=== PATIENT | male | born 1955 | race Two or more races ===

== ENCOUNTER 2017-03-25 16:59 | Emergency (ER) | payer MEDICARE ==
--- NOTE | 2017-03-25 17:42 | ER Document Report ---
ED Medical Screen (RME) - General Chief Complaint: Swelling of Lower Extremity Stated Complaint: SHORTNESS OF BREATH Time Seen by Provider: 03/25/17 17:34 Notes: 61-year-old male patient past history of hyperlipidemia, hypertension, diabetes mellitus on insulin, and depression. He is a bronchitis for about a month, he was recently treated with a steroid taper dose pack which ended yesterday. He reports about one half weeks of worsening symptoms with worsening swelling in his legs and shortness of breath. He also admits to probably too much ham over [place]. He has had chronic edema to the lower extremities for a long time, and his new primary care provider recommended Lasix 6 weeks ago. He reports it was helping quite a lot until the past one half weeks, when he probably had too much a.m. and he was put on the steroid dose pack for his bronchitis. He gets short of breath when he lays back. I have greeted and performed a rapid initial assessment of this patient. A comprehensive ED assessment and evaluation of the patient, analysis of test results and completion of the medical decision making process will be conducted by additional ED providers. TRAVEL OUTSIDE OF THE [place] IN LAST 30 DAYS: No - Related Data Allergies/Adverse Reactions: Penicillins Allergy (Verified 03/25/17 17:03) Past Medical History - Past Medical History Cardiac Medical History: Reports: Hx Hypercholesterolemia, Hx Hypertension Pulmonary Medical History: Denies: Hx Tuberculosis Neurological Medical History: Denies: Hx Seizures Endocrine Medical History: Reports: Hx Diabetes Mellitus Type 2. Denies: Hx Graves' Disease, Hx Hyperthyroidism, Hx Hypothyroidism GI Medical History: Reports: Hx Gastroesophageal Reflux Disease. Denies: Hx Crohn's Disease, Hx Hiatal Hernia, Hx Irritable Bowel, Hx Liver Failure, Hx Pancreatitis, Hx Ulcer Musculoskeltal Medical History: Denies Hx Arthritis, Denies Hx Fibromyalgia, Denies Hx Muscular Dystrophy Psychiatric Medical History: Reports: Hx Depression Traumatic Medical History: Denies: Hx Fractures Past Surgical History: Reports: Hx Orthopedic Surgery - left shoulder, s/p accident. Denies: Hx Colostomy, Hx Pacemaker - Immunizations Hx Diphtheria, Pertussis, Tetanus Vaccination: Yes Physical Exam - Vital signs Vitals: Temp Pulse Resp BP Pulse Ox 97.8 F 95 16 147/100 H 93 03/25/17 17:34 03/25/17 17:34 03/25/17 17:34 03/25/17 17:34 03/25/17 17:34 Course - Vital Signs Vital signs: Temp Pulse Resp BP Pulse Ox 97.8 F 95 16 147/100 H 93 03/25/17 17:34 03/25/17 17:34 03/25/17 17:34 03/25/17 17:34 03/25/17 17:34
[2017-03-25 18:37] LABS: HEMATOCRIT 50.8 % (37.9-51.0); HEMOGLOBIN 16.4 g/dL (13.5-17.0); MEAN CORPUSCULAR HEMOGLOBIN 27.4 pg (27.0-33.4); MEAN CORPUSCULAR HGB CONC 32.2 g/dL (32.0-36.0); MEAN CORPUSCULAR VOLUME 85 fl (80-97); PLATELET COUNT 259 10^3/uL (150-450); RED BLOOD COUNT 5.97 10^6/uL (4.35-5.55); RED CELL DISTRIBUTION WIDTH 16.2 % (11.5-14.0); WHITE BLOOD COUNT 10.8 10^3/uL (4.0-10.5)
[2017-03-25 18:53] LABS: ALANINE AMINOTRANSFERASE 37 U/L (21-72); ALKALINE PHOSPHATASE 119 U/L (38-126); ANION GAP 11 (5-19); ASPARTATE AMINO TRANSFERASE 28 U/L (17-59); BILIRUBIN,DIRECT 0.6 mg/dL (0.0-0.4); BILIRUBIN,TOTAL 0.9 mg/dL (0.2-1.3); BLOOD UREA NITROGEN 35 mg/dL (7-20); CARBON DIOXIDE 30 mmol/L (22-30); CHLORIDE 101 mmol/L (98-107); CREATINE KINASE 138 U/L (55-170); GLUCOSE 170 mg/dL (75-110); MAGNESIUM 1.6 mg/dL (1.6-2.3); POTASSIUM 4.4 mmol/L (3.6-5.0); SODIUM 141.8 mmol/L (137-145); TOTAL PROTEIN 7.3 g/dL (6.3-8.2)
[2017-03-25 19:00] LABS: ABSOLUTE LYMPHOCYTES# (MANUAL) 2.6 10^3/uL (0.5-4.7); ABSOLUTE MONOCYTES # (MANUAL) 0.6 10^3/uL (0.1-1.4); ABSOLUTE NEUTROPHILS# (MANUAL) 7.2 10^3/uL (1.7-8.2); BASOPHILS % (MANUAL) 1 % (0-2); EOSINOPHILS % (MANUAL) 2 % (0-6); LYMPHOCYTES % (MANUAL) 24 % (13-45); MONOCYTES % (MANUAL) 6 % (3-13); SEGMENTED NEUTROPHILS % (MAN) 67 % (42-78); TOTAL CELLS COUNTED 100
[2017-03-25 19:03] LABS: ANISOCYTOSIS SLIGHT; OVALOCYTES SLIGHT; PLATELET COMMENT ADEQUATE; PLATELET LARGE PRESENT; SCHISTOCYTES 1+; TEAR DROP CELLS 1+; TOXIC GRANULATION 1+
--- NOTE | 2017-03-25 19:06 | ER Document Report ---
ED General - General Chief Complaint: Swelling of Lower Extremity Stated Complaint: SHORTNESS OF BREATH Time Seen by Provider: 03/25/17 17:34 Notes: Patient is a 61-year-old male with a past medical history of morbid obesity, hypertension, hyperlipidemia, hypercholesterolemia, who presents with 1 month of orthopnea that is worsened over the last 2 weeks. Patient reports that he has a long-standing history of sleep apnea but has not had a formal sleep study so he cannot obtain a CPAP. He states that he feels fine until he goes to lay down in bed when his symptoms suddenly develop after he lies flat for approximately 10-15 minutes. He has tried nebulizer treatments without improvement of his symptoms. He has seen his primary care doctor regarding these concerns and was recently started on furosemide with some improvement of his lower extremity edema as well as orthopnea. However, he admits over the holidays he had severe dietary indiscretions consuming much more salt than is recommended. He reports that since that time he has noted worsening of his lower extremity edema as well as orthopnea. He denies any chest pain or shortness of breath. TRAVEL OUTSIDE OF THE [place] IN LAST 30 DAYS: No - Related Data Allergies/Adverse Reactions: Penicillins Allergy (Verified 03/25/17 17:03) Past Medical History - General Information source: Patient - Social History Smoking Status: Former Smoker Chew tobacco use (# tins/day): No Frequency of alcohol use: None Drug Abuse: None Lives with: Spouse/Significant other Family History: Reviewed & Not Pertinent Patient has suicidal ideation: No Patient has homicidal ideation: No - Past Medical History Cardiac Medical History: Reports: Hx Hypercholesterolemia, Hx Hypertension Pulmonary Medical History: Denies: Hx Tuberculosis Neurological Medical History: Denies: Hx Seizures Endocrine Medical History: Reports: Hx Diabetes Mellitus Type 2. Denies: Hx Graves' Disease, Hx Hyperthyroidism, Hx Hypothyroidism Renal/ Medical History: Denies: Hx Peritoneal Dialysis GI Medical History: Reports: Hx Gastroesophageal Reflux Disease. Denies: Hx Crohn's Disease, Hx Hiatal Hernia, Hx Irritable Bowel, Hx Liver Failure, Hx Pancreatitis, Hx Ulcer Musculoskeltal Medical History: Denies Hx Arthritis, Denies Hx Fibromyalgia, Denies Hx Muscular Dystrophy Psychiatric Medical History: Reports: Hx Depression Traumatic Medical History: Denies: Hx Fractures Past Surgical History: Reports: Hx Orthopedic Surgery - left shoulder, s/p accident. Denies: Hx Colostomy, Hx Pacemaker - Immunizations Hx Diphtheria, Pertussis, Tetanus Vaccination: Yes Review of Systems - Review of Systems Notes: Constitutional: Negative for fever. HENT: Negative for sore throat. Eyes: Negative for visual changes. Cardiovascular: Negative for chest pain. Respiratory: Negative for shortness of breath. Positive orthopnea Gastrointestinal: Negative for abdominal pain, vomiting or diarrhea. Genitourinary: Negative for dysuria. Musculoskeletal: Negative for back pain. Skin: Negative for rash. Neurological: Negative for headaches, weakness or numbness. 10 point ROS negative except as marked above and in HPI. Physical Exam - Vital signs Vitals: Temp Pulse Resp BP Pulse Ox 97.8 F 95 16 147/100 H 93 03/25/17 17:34 03/25/17 17:34 03/25/17 17:34 03/25/17 17:34 03/25/17 17:34 Interpretation: Normal Notes: PHYSICAL EXAMINATION: GENERAL: Morbidly obese male in no acute distress HEAD: Atraumatic, normocephalic. EYES: Pupils equal round and reactive to light, extraocular movements intact, sclera anicteric, conjunctiva are normal. ENT: nares patent, oropharynx clear without exudates. Moist mucous membranes. NECK: Normal range of motion, supple without lymphadenopathy LUNGS: Breath sounds clear to auscultation bilaterally and equal. No wheezes rales or rhonchi. HEART: Regular rate and rhythm without murmurs ABDOMEN: Morbidly obese abdomen. Soft, nontender, normoactive bowel sounds. No guarding, no rebound. No masses appreciated. EXTREMITIES: Normal range of motion, 1+ pitting edema in the bilateral lower extremities, findings consistent with chronic stasis dermatitis NEUROLOGICAL: No focal neurological deficits. Moves all extremities spontaneously and on command. PSYCH: Normal mood, normal affect. SKIN: Warm, Dry, normal turgor, no rashes or lesions noted. Course - Re-evaluation Re-evalutation: 03/25/17 19:02 Patient presents with bilateral lower extremity edema as well as orthopnea that has gotten progressively worse over the last 1 month. Patient is overall nontoxic in appearance, in no respiratory distress. He denies any chest pain or shortness of breath will sitting up in the bed. He does not have a known history of CHF and had an echocardiogram at the beginning of this year but clinically he likely has some degree of systolic and diastolic failure. Renal function and liver functions are normal. I do not suspect an acute DVT as the edema is symmetric in the bilateral lower extremities. He does not have any tachypnea or hypoxemia. No clinical symptoms to suggest ACS, aortic dissection , or acute pulmonary embolus. I had an extensive conversation with the patient about the urgent need for weight loss as he is 176 kg although this is unchanged from when he was last present in the emergency department in September 2016. I do not suspect significant volume overload warranting IV diuresis in the hospital. However I have encouraged him to continue taking his Lasix as prescribed by his primary care doctor, monitor his salt intake especially over the holidays, and have encouraged him to urgently begin a weight loss regimen. We have discussed that he will not likely survive more than 3-4 more additional years at his current weight. Troponin was sent in triage which I do not necessarily believe is indicated as patient is denying any chest pain or shortness of breath other than when lying flat. It is an indeterminate range at 0.042. Again patient is denying any chest pain or shortness of breath has no EKG changes. I will obtain a delta troponin to ensure that there is no significant uptrend in the value. 03/25/17 21:11 Repeat troponin remains effectively unchanged. No significant uptrend to suggest ischemia. Repeat EKG is unremarkable. Patient remains without chest pain or shortness of breath. At this time will discharge with return precautions and follow-up recommendations. Verbal discharge instructions given a the bedside and opportunity for questions given. Medication warnings reviewed. Patient is in agreement with this plan and has verbalized understanding of return precautions and the need for primary care follow-up in the next 24-72 hours. - Vital Signs Vital signs: Temp Pulse Resp BP Pulse Ox 97.8 F 95 22 H 111/73 93 03/25/17 17:34 03/25/17 17:34 03/25/17 20:01 03/25/17 20:01 03/25/17 20:01 - Laboratory Result Diagrams: 03/25/17 18:27 03/25/17 18:27 Laboratory results interpreted by me: 03/25/17 03/25/17 18:27 18:27 WBC 10.8 H RBC 5.97 H RDW 16.2 H BUN 35 H Glucose 170 H Direct Bilirubin 0.6 H - Diagnostic Test Radiology reviewed: Image reviewed, Reports reviewed Radiology results interpreted by me: 03/25/17 19:04 Chest x-ray: Cardiomegaly, moderate vascular congestion - EKG Interpretation by Me Additional EKG results interpreted by me: 03/25/17 19:04 Sinus rhythm. Rate 89. No ST elevations or depressions. QTC is 448. Discharge - Discharge Clinical Impression: Morbid obesity, Orthopnea, Bilateral lower extremity edema Condition: Fair Disposition: HOME, SELF-CARE Additional Instructions: You need to continue to take the Lasix that has been prescribed by her primary care doctor as directed. Please monitor very closely your sodium intake as this likely includes the increased swelling and difficulty breathing at night that you have recently developed. You should also follow-up with a chili pepper grinder for repeat echocardiogram as I am concerned that you have likely developed congestive heart failure. You also need to follow-up for sleep study as not wearing a CPAP machine at night is likely worsening your difficulty breathing at night and will also cause a myriad of additional health complications including congestive heart failure. As we discussed today, please strongly consider losing weight. Your obesity will result in a shorter life and serious diagnoses including heart attacks, stroke, diabetes, high blood pressure, high cholesterol, kidney failure, and will also result in a much less enjoyable life due to these chronic conditions. Focus on gradual life style changes including removing sugared beverages and processed foods from your diet abd at least 30 minutes of moderate activity daily. Try to target 4-5lbs of weight loss per month.
[2017-03-25 19:09] LABS: TROPONIN I 0.042 ng/mL
--- NOTE | 2017-03-25 19:22 | RADIOLOGY REPORT (SQ) ---
EXAM DESCRIPTION: CHEST SINGLE VIEW COMPLETED DATE/TIME: 03/25/2017 7:03 pm REASON FOR STUDY: SOB, EDEMA, BRONCHITIS COMPARISON: 02/27/2015 EXAM PARAMETERS: NUMBER OF VIEWS: One view. TECHNIQUE: Single frontal radiographic view of the chest acquired. RADIATION DOSE: NA LIMITATIONS: None. FINDINGS: LUNGS AND PLEURA: No consolidation, masses or pneumothorax. No pleural effusion. MEDIASTINUM AND HILAR STRUCTURES: Stable. HEART AND VASCULAR STRUCTURES: Stable. BONES: No acute findings. HARDWARE: None in the chest. OTHER: No other significant finding. IMPRESSION: NO ACUTE RADIOGRAPHIC FINDING IN THE CHEST. TECHNICAL DOCUMENTATION: JOB ID: [id number] [place]-72 2010 [employer]- All Rights Reserved
[2017-03-25 21:24] VITALS: BP 108/76
--- NOTE | 2017-03-28 12:40 | EKG REPORT ---
SEVERITY:- NORMAL ECG - SINUS RHYTHM : Confirmed by: Tia Blackmon MD 28-Mar-2017 12:40:00
--- NOTE | 2017-03-28 12:40 | EKG REPORT ---
SEVERITY:- BORDERLINE ECG - SINUS RHYTHM BORDERLINE R WAVE PROGRESSION, ANTERIOR LEADS : Confirmed by: Tia Blackmon MD 28-Mar-2017 12:40:16
== END 2017-03-25 21:30 | disposition home or self-care (01) ==
LOC: ER 16:59
DX: R60.0 Localized edema (principal); R06.01 Orthopnea; E66.01 Morbid (severe) obesity due to excess calories; M79.89 Other specified soft tissue disorders; R06.02 Shortness of breath; I10 Essential (primary) hypertension; E78.5 Hyperlipidemia, unspecified; E78.00 Pure hypercholesterolemia, unspecified; Z87.891 Personal history of nicotine dependence
CPT/HCPCS: 36415; 71010; 80053; 82550; 83735; 83880; 84484; 85025; 93005; 93010; 99284

== ENCOUNTER → 2018-07-05 | Outpatient (CLI) | payer MEDICARE ==
--- NOTE | 2018-07-05 16:43 | RADIOLOGY REPORT (SQ) ---
EXAM DESCRIPTION: U/S RETROPERITON (RENAL/AORTA) COMPLETED DATE/TIME: 07/05/2018 2:31 pm REASON FOR STUDY: N18.3 CHRONIC KIDNEY DISEASE, STAGE 3 (MODERATE) N18.3 CHRONIC KIDNEY DISEASE, ST AGE 3 (MODERATE) COMPARISON: None. TECHNIQUE: Dynamic and static grayscale images acquired of the kidneys and bladder and recorded on P ACS. Additional selected color Doppler and spectral images recorded. LIMITATIONS: None. FINDINGS: RIGHT KIDNEY: Normal size, 13.9 cm. Increased echogenicity. No solid or suspicious masses . No hydronephrosis. No calcifications. LEFT KIDNEY: Normal size, 12 cm. Increased echogenicity. No solid or suspicious masses. No hydronep hrosis. No calcifications. BLADDER: The urinary bladder could not be seen because of patient body habitus. OTHER FINDINGS: No other significant finding. IMPRESSION: The kidneys are normal in size. There appears to be increased echogenicity in each kidn ey, suggesting chronic medical renal disease. TECHNICAL DOCUMENTATION: JOB ID: [id number] [employer]- All Rights Reserved Reading location - IP/workstation name: [email or web address]
== END ==
LOC: RAD 16:58
PROVIDERS: ATTEND Internal Medicine Nephrology
DX: N18.3 Chronic kidney disease, stage 3 (moderate) (principal)
CPT/HCPCS: 76770

== ENCOUNTER → 2018-09-07 | Outpatient (CLI) | payer MEDICARE ==
--- NOTE | 2018-09-07 10:50 | RADIOLOGY REPORT (SQ) ---
EXAM DESCRIPTION: CT ABD/PELVIS WITH IV ONLY COMPLETED DATE/TIME: 09/07/2018 9:30 am REASON FOR STUDY: INTRA-ABDOMINAL AND PELVIC SWELLING, MASS AND LUMP, UNSPEC SITE (R19.00) R19.00 I NTRA-ABD AND PELVIC SWELLING, MASS AND LUMP, UNSP SI COMPARISON: None. TECHNIQUE: CT scan of the abdomen and pelvis performed using helical scanning technique with dynamic intravenous contrast injection. No oral contrast. Images reviewed with lung, soft tissue, and bone windows. Reconstructed coronal and sagittal MPR images reviewed. Delayed images for evaluation of the urinary system also acquired. All images stored on PACS. All CT scanners at this facility use dose modulation, iterative reconstruction, and/or weight based d osing when appropriate to reduce radiation dose to as low as reasonably achievable (ALARA). [facility]: Dose Right [facility]: CareDose [facility]: Dose Right [facility]: Teradose 4D [facility]: SpectraRep CONTRAST TYPE AND DOSE: contrast/concentration: Isovue 350.00 mg/ml; Total Contrast Delivered: 100.0 ml; Total Saline Delivered: 72.0 ml RENAL FUNCTION: Appropriate. RADIATION DOSE: CT Rad equipment meets quality standard of care and radiation dose reduction techniq ues were employed. CTDIvol: 26.7 - 31.6 mGy. DLP: 3251 mGy-cm.. LIMITATIONS: Limited clinical information. Habitus further limits. FINDINGS: LOWER CHEST: No significant findings. No nodules or infiltrates. LIVER: Normal size. No masses. No dilated ducts. SPLEEN: Normal size. No focal lesions. PANCREAS: No masses. No significant calcifications. No adjacent inflammation or peripancreatic fluid collections. Pancreatic duct not dilated. GALLBLADDER: Cholelithiasis. No CT evidence of acute cholecystitis. ADRENAL GLANDS: No significant masses or asymmetry. RIGHT KIDNEY AND URETER: No solid masses. No significant calcification. No hydronephrosis or hydroure ter. LEFT KIDNEY AND URETER: No solid masses. No significant calcification. No hydronephrosis or hydrouret er. AORTA AND VESSELS: No aneurysm. No dissection. Renal arteries, SMA, celiac without stenosis. RETROPERITONEUM: No retroperitoneal adenopathy, hemorrhage or masses. BOWEL AND PERITONEAL CAVITY: Diverticulosis in the distal colon without active inflammatory change. No dilated loops. No ascites or abnormal gas. APPENDIX: Normal. PELVIS: No mass. No free fluid. Normal bladder. ABDOMINAL WALL: Partially out of the field of view. No gross hernia or mass detected per BONES: Spondylosis. No fracture or worrisome bone lesion. OTHER: No other significant finding. IMPRESSION: No acute or suspicious abdominopelvic abnormality. Cholelithiasis. TECHNICAL DOCUMENTATION: JOB ID: [id number] Quality ID # [id number]: Final reports with documentation of one or more dose reduction techniques (e.g., Au tomated exposure control, adjustment of the mA and/or kV according to patient size, use of iterative reconstruction technique) 2010 [employer]- All Rights Reserved Reading location - IP/workstation name: [email or web address]
== END ==
LOC: SP 08:33
PROVIDERS: ATTEND Nurse Practitioner Family
DX: R19.00 Intra-abdominal and pelvic swelling, mass and lump, unspecified site (principal)
CPT/HCPCS: 74177; 82565

== ENCOUNTER 2019-02-26 08:18 | Emergency (ER) | payer MEDICARE ==
--- NOTE | 2019-02-26 09:06 | RADIOLOGY REPORT (SQ) ---
EXAM DESCRIPTION: ELBOW RIGHT OVER 2 VIEWS COMPLETED DATE/TIME: 02/26/2019 8:52 am REASON FOR STUDY: fall, bone tenderness COMPARISON: None. NUMBER OF VIEWS: Two views. TECHNIQUE: AP and lateral radiographic images acquired of the right elbow. LIMITATIONS: Limited positioning. FINDINGS: MINERALIZATION: Normal. BONES: No acute fracture or dislocation. No worrisome bone lesions. JOINT: No effusion. SOFT TISSUES: No soft tissue swelling. No foreign body. OTHER: No other significant finding. IMPRESSION: NEGATIVE STUDY OF THE RIGHT ELBOW. NO RADIOGRAPHIC EVIDENCE OF ACUTE INJURY. TECHNICAL DOCUMENTATION: JOB ID: [id number] [employer]- All Rights Reserved Reading location - IP/workstation name: NEWSP[employer] EDITOR [email or web address]
--- NOTE | 2019-02-26 09:07 | RADIOLOGY REPORT (SQ) ---
EXAM DESCRIPTION: SHOULDER RIGHT 2 OR MORE VIEWS COMPLETED DATE/TIME: 02/26/2019 8:52 am REASON FOR STUDY: fall, bone tenderness COMPARISON: None. NUMBER OF VIEWS: Two views. TECHNIQUE: Frontal and lateral images acquired of the right shoulder. LIMITATIONS: Limited positioning. FINDINGS: MINERALIZATION: Normal. BONES: Comminuted fracture of the humeral head. JOINTS: No dislocation. VISUALIZED LUNGS AND RIBS: No pneumothorax. No rib fracture. SOFT TISSUES: No radiopaque foreign body. OTHER: No other significant finding. IMPRESSION: LIMITED STUDY. COMMINUTED FRACTURE OF THE HUMERAL HEAD. TECHNICAL DOCUMENTATION: JOB ID: [id number] [employer]- All Rights Reserved Reading location - IP/workstation name: [email or web address]
--- NOTE | 2019-02-26 09:49 | ER Document Report ---
ED General - General Chief Complaint: Arm Pain Stated Complaint: FALL/RIGHT ARM PAIN Time Seen by Provider: 02/26/19 09:12 Primary Care Provider: SAMEER DERAS [employer] QUILLER TENDER, [employer]LLER TENDER [Primary Care Provider] - Follow up as needed Information source: Patient, Relative Notes: HPI: 63-year-old male who presents today with EMS after 2 falls. One was at 2 AM and one was at 7 AM. Patient refused transport initially. Patient fell onto his right side did hit his head. No loss of consciousness. Patient is on blood thinning medications. Past medical history as recorded. The states the patient has been "intermittently confused" over the last few days. She states specifically on Thanksgiving he did not know where he was for 20 to 30 minutes. She states they did not come to the emergency department because he is "hard headed". She also states that the patient's erythema and swelling to the lower abdomen has increased appreciably over the last 2 days. No diagnosis of heart failure in the past. Chronic perico lower extremity edema. No fevers, vomiting, or diarrhea. Patient does state some worsening shortness of breath over the last 2 months. He needs to sit up during sleeping hours at this time. ROS: See HPI All other review of systems reviewed and otherwise negative Reviewed vital signs and nursing note as charted by RN. PHYSICAL EXAM: CONSTITUTIONAL: Alert and oriented and responds appropriately to questions. Well-appearing; well-nourished HEAD: Abrasion to the right side of the head; no mastoid swelling or ecchymosis. No hemotympanum present EYES: PERRL; Conjunctivae clear, sclerae non-icteric ENT: Normal nose; no rhinorrhea; moist mucous membranes; pharynx without lesions noted NECK: Supple without meningismus; non-tender; no cervical lymphadenopathy, no masses CARD: Regular rate and rhythm; no murmurs; symmetric distal pulses RESP: Normal chest excursion without splinting or tachypnea; breath sounds clear and equal bilaterally; scant bilateral wheezes without rhonchi or rales appreciated. Auscultation difficult secondary to the patient's body habitus ABD/GI: Normal bowel sounds; grossly distended; extensive erythema and edema to the lower abdomen up to the level just above the umbilicus GI/: I laid the patient flat and lifted the edematous pannus and I do not detect any obvious fluctuance, induration, or skin breakdown to the scrotal or perineal region. It is slightly erythematous which is baseline according to the EXT: Tenderness without any obvious appreciated malformation of the right shoulder. No tenderness to the right elbow, forearm, wrist, or hand. Old surgical scar to the left anterior lateral shoulder. Bilateral chronic appearing perico edema bilateral lower extremities SKIN: See above NEURO: CN 2-12 intact; 5/5 bilateral upper and lower extremity strength with sensation intact to light touch PSYCH: The patient's mood and manner are appropriate. Grooming and personal hygiene are appropriate. TRAVEL OUTSIDE OF THE [place] IN LAST 30 DAYS: No - Related Data Allergies/Adverse Reactions: Penicillins Allergy (Verified 02/26/19 15:17) Past Medical History - Social History Smoking Status: Unknown if Ever Smoked Family History: Reviewed & Not Pertinent Patient has suicidal ideation: No Patient has homicidal ideation: No - Past Medical History Cardiac Medical History: Reports: Hx Hypercholesterolemia, Hx Hypertension Pulmonary Medical History: Denies: Hx Tuberculosis Neurological Medical History: Denies: Hx Seizures Endocrine Medical History: Reports: Hx Diabetes Mellitus Type 2. Denies: Hx Graves' Disease, Hx Hyperthyroidism, Hx Hypothyroidism Renal/ Medical History: Denies: Hx Peritoneal Dialysis GI Medical History: Reports: Hx Gastroesophageal Reflux Disease. Denies: Hx Crohn's Disease, Hx Hiatal Hernia, Hx Irritable Bowel, Hx Liver Failure, Hx Pancreatitis, Hx Ulcer Musculoskeletal Medical History: Denies Hx Arthritis, Denies Hx Fibromyalgia, Denies Hx Muscular Dystrophy, Denies Hx Systemic Lupus Erythematosus Psychiatric Medical History: Reports: Hx Depression Traumatic Medical History: Denies: Hx Fractures Past Surgical History: Reports: Hx Orthopedic Surgery - left shoulder, s/p accident. Denies: Hx Colostomy, Hx Pacemaker - Immunizations Hx Diphtheria, Pertussis, Tetanus Vaccination: Yes Physical Exam - Vital signs Vitals: Temp Pulse Resp BP Pulse Ox 98.1 F 112 H 26 H 133/88 H 92 02/26/19 08:21 02/26/19 08:21 02/26/19 08:21 02/26/19 08:21 02/26/19 08:21 Course - Re-evaluation Re-evalutation: Given the history and physical in this extremely unhealthy appearing male, with falls as recorded, with the patient stating that he has been dizzy, with altered mental status according to the recently, with worsening shortness of breath and lower extremity edema, I will order cardiac panel, EKG, x-ray of the chest, CT of the head, x-ray of the humerus, and reassess. I am concerned about the possibility of undiagnosed heart failure as well as a right shoulder fracture. 02/26/19 09:49 Initial x-rays as recorded. Sling will be placed on the patient's right arm. We do have orthopedics client solutions director. 02/26/19 10:56 Patient appears to have acute renal failure. Patient also has an elevated white blood cell count with a slightly elevated potassium. BMP appears to show what I suspected being congestive heart failure. I will provide Lasix and Kayexalate. Aspirin has been provided as has an EKG and ordered. Patient denies any and all chest pain. Repeat 1 hour troponin has been ordered. 02/26/19 11:11 EKG shows a heart of 103, atrial fibrillation, normal axis, no obvious ST elevation or depression. 02/26/19 12:51 Given the constellation of symptoms with no order selector client solutions director today or [facility], [facility] and treatment. 02/26/19 13:13 [facility]. I have explained the full history and physical to the accepting physician. He would like me to provide a one-time dose of Lovenox given the patient's kidney failure as opposed to twice daily dosing. I will adjust the Lovenox given the patient's BMI. 02/26/19 15:22 Patient is stable for transport. - Vital Signs Vital signs: Temp Pulse Resp BP Pulse Ox 98.1 F 112 H 22 H 151/125 H 94 02/26/19 08:21 02/26/19 08:21 02/26/19 15:01 02/26/19 15:01 02/26/19 15:01 - Laboratory Result Diagrams: 02/26/19 09:49 02/26/19 09:49 Laboratory results interpreted by me: 02/26/19 02/26/19 02/26/19 09:49 09:49 09:49 WBC 18.3 H RDW 16.5 H Seg Neuts % (Manual) 89 H Lymphocytes % (Manual) 3 L Abs Neuts (Manual) 17.0 H Sodium 136.4 L Potassium 5.5 H BUN 52 H Creatinine 2.07 H Est GFR ( Amer) 39 L Est GFR (MDRD) Non-Af 32 L Glucose 220 H Total Bilirubin 2.5 H Direct Bilirubin 0.6 H NT-Pro-B Natriuret Pep 3250 H Total Protein 6.1 L Albumin 3.4 L Urine Protein Urine Glucose (UA) Urine Ketones Urine Blood 02/26/19 14:11 WBC RDW Seg Neuts % (Manual) Lymphocytes % (Manual) Abs Neuts (Manual) Sodium Potassium BUN Creatinine Est GFR ( Amer) Est GFR (MDRD) Non-Af Glucose Total Bilirubin Direct Bilirubin NT-Pro-B Natriuret Pep Total Protein Albumin Urine Protein >=500 H Urine Glucose (UA) 50 H Urine Ketones TRACE H Urine Blood LARGE H Critical Care Note - Critical Care Note Total time excluding time spent on procedures (mins): 45 Discharge - Discharge Clinical Impression: Hyperkalemia Fall Qualifiers: Encounter type: initial encounter Qualified Code(s): W19.XXXA - Unspecified fall, initial encounter Right humeral fracture Qualifiers: Encounter type: initial encounter Humerus Location: proximal Fracture type: closed Fracture alignment: nondisplaced Acute congestive heart failure Qualifiers: Heart failure type: unspecified Qualified Code(s): I50.9 - Heart failure, unspecified Acute renal failure Qualifiers: Acute renal failure type: unspecified Qualified Code(s): N17.9 - Acute kidney failure, unspecified Condition: Fair Disposition: [facility] Referrals: SAMEER DERAS NP, [employer]LLER TENDER [Primary Care Provider] - Follow up as needed
[2019-02-26 10:22] LABS: HEMATOCRIT 42.9 % (37.9-51.0); MEAN CORPUSCULAR HEMOGLOBIN 28.4 pg (27.0-33.4); MEAN CORPUSCULAR HGB CONC 32.7 g/dL (32.0-36.0); MEAN CORPUSCULAR VOLUME 87 fl (80-97); PLATELET COUNT 171 10^3/uL (150-450); RED BLOOD COUNT 4.94 10^6/uL (4.35-5.55); RED CELL DISTRIBUTION WIDTH 16.5 % (11.5-14.0); WHITE BLOOD COUNT 18.3 10^3/uL (4.0-10.5)
--- NOTE | 2019-02-26 10:30 | RADIOLOGY REPORT (SQ) ---
EXAM DESCRIPTION: CHEST 2 VIEWS COMPLETED DATE/TIME: 02/26/2019 10:19 am REASON FOR STUDY: 11; fall COMPARISON: 02/27/2015. EXAM PARAMETERS: NUMBER OF VIEWS: two views TECHNIQUE: Digital Frontal and Lateral radiographic views of the chest acquired. RADIATION DOSE: NA LIMITATIONS: Study limited due to the patient's obesity. FINDINGS: LUNGS AND PLEURA: Patchy density in the left lung base. Possible left pleural effusion. Streaky density in the right lower lobe. No pneumothorax. 1.5 cm round nodular density overlying th e right mid lung MEDIASTINUM AND HILAR STRUCTURES: No masses or contour abnormalities. HEART AND VASCULAR STRUCTURES: Heart normal size. No evidence for failure. BONES: No acute findings. HARDWARE: None in the chest. OTHER: No other significant finding. IMPRESSION: 1. LIMITED STUDY. STREAKY DENSITIES IN THE LUNG BASES POSSIBLY DUE TO ATELECTASIS ALTHOUGH INFILTRAT E NOT EXCLUDED. POSSIBLE LEFT PLEURAL EFFUSION. 2. 1.5 CM ROUND NODULAR DENSITY OVERLYING THE RIGHT MID LUNG. THIS COULD BE A PULMONARY NODULE, BONE LESION, OR SOFT TISSUE NODULE. TECHNICAL DOCUMENTATION: JOB ID: [id number] [employer]- All Rights Reserved Reading location - IP/workstation name: [email or web address]
--- NOTE | 2019-02-26 10:31 | RADIOLOGY REPORT (SQ) ---
EXAM DESCRIPTION: CT HEAD WITHOUT COMPLETED DATE/TIME: 02/26/2019 10:22 am REASON FOR STUDY: 11; fall; closed head injury COMPARISON: None. TECHNIQUE: Axial images acquired through the brain without intravenous contrast. Images reviewed wi th bone, brain and subdural windows. Additional sagittal and coronal reconstructions were generated. Images stored on PACS. All CT scanners at this facility use dose modulation, iterative reconstruction, and/or weight based d osing when appropriate to reduce radiation dose to as low as reasonably achievable (ALARA). [facility]: Dose Right [facility]: CareDose [facility]: Dose Right [facility]: Teradose 4D [facility]: Smart [employer] RADIATION DOSE: CT Rad equipment meets quality standard of care and radiation dose reduction techniq ues were employed. CTDIvol: 53.2 mGy. DLP: 1257 mGy-cm. mGy. LIMITATIONS: None. FINDINGS: VENTRICLES: Normal size and contour. CEREBRUM: No masses. No hemorrhage. No midline shift. No evidence for acute infarction. Normal gra y/white matter differentiation. No areas of low density in the white matter. CEREBELLUM: No masses. No hemorrhage. No alteration of density. No evidence for acute infarction. EXTRAAXIAL SPACES: No fluid collections. No masses. ORBITS AND GLOBE: No intra- or extraconal masses. Normal contour of globe without masses. CALVARIUM: No fracture. PARANASAL SINUSES: No fluid or mucosal thickening. SOFT TISSUES: No mass or hematoma. OTHER: No other significant finding. IMPRESSION: NORMAL BRAIN CT WITHOUT CONTRAST. EVIDENCE OF ACUTE STROKE: NO. COMMENT: Quality ID # [id number]: Final reports with documentation of one or more dose reduction techniques (e.g., Automated exposure control, adjustment of the mA and/or kV according to patient size, use of iterative reconstruction technique) TECHNICAL DOCUMENTATION: JOB ID: [id number] [employer]- All Rights Reserved Reading location - IP/workstation name: [email or web address]
[2019-02-26] MEDS ORDERED: MORPHINE SULFATE 10 MG/ML INJ IV ONE ×2 (10:32→14:57)
[2019-02-26 10:36] LABS: ALBUMIN 3.4 g/dL (3.5-5.0); ALKALINE PHOSPHATASE 114 U/L (38-126); ANION GAP 14 (5-19); ASPARTATE AMINO TRANSFERASE 43 U/L (17-59); BILIRUBIN,DIRECT 0.6 mg/dL (0.0-0.4); BILIRUBIN,TOTAL 2.5 mg/dL (0.2-1.3); BLOOD UREA NITROGEN 52 mg/dL (7-20); CALCIUM 9.5 mg/dL (8.4-10.2); CARBON DIOXIDE 24 mmol/L (22-30); CHLORIDE 98 mmol/L (98-107); GLUCOSE 220 mg/dL (75-110); POTASSIUM 5.5 mmol/L (3.6-5.0); TOTAL PROTEIN 6.1 g/dL (6.3-8.2)
[2019-02-26 10:50] LABS: ABSOLUTE LYMPHOCYTES# (MANUAL) 0.5 10^3/uL (0.5-4.7); ABSOLUTE MONOCYTES # (MANUAL) 0.7 10^3/uL (0.1-1.4); BAND NEUTROPHILS % (MANUAL) 4 % (3-5); BASOPHILS % (MANUAL) 0 % (0-2); EOSINOPHILS % (MANUAL) 0 % (0-6); LYMPHOCYTES % (MANUAL) 3 % (13-45); MONOCYTES % (MANUAL) 4 % (3-13); SEGMENTED NEUTROPHILS % (MAN) 89 % (42-78); TOTAL CELLS COUNTED 100; TROPONIN I 0.11 ng/mL
[2019-02-26 10:51] LABS: ANISOCYTOSIS 1+; PLATELET COMMENT ADEQUATE; POLYCHROMASIA SLIGHT; TOXIC GRANULATION 1+; TOXIC VACUOLATION PRESENT
[2019-02-26] MEDS ORDERED: FUROSEMIDE INJ/PF 40 MG/4 ML SDV IV ONE (10:56)
[2019-02-26] MEDS ORDERED: SODIUM POLYSTYRENE SULFONATE 15 GM/60 ML PO ONE (10:56)
[2019-02-26] MEDS ORDERED: ASPIRIN 325 MG TABLET PO ONE (10:56)
[2019-02-26] MEDS ORDERED: CEFTRIAXONE 1 GM/D5W RTU 1 GM/50 ML RTUPB IV ONE (10:58)
--- NOTE | 2019-02-26 12:22 | EKG REPORT ---
SEVERITY:- ABNORMAL ECG - ATRIAL FIBRILLATION, V-RATE 70-124 BORDERLINE RIGHT AXIS DEVIATION : Confirmed by: Modesto Acuña 26-Feb-2019 12:22:20
[2019-02-26] MEDS ORDERED: ENOXAPARIN SODIUM INJ 150 MG/1 ML DISP.SYRIN SUBCUT ONE (13:21)
[2019-02-26 14:32] LABS: AMORPHOUS SEDIMENT,URINE TRACE /HPF; APPEARANCE,URINE SLIGHTLY-CLOUDY; BILIRUBIN,URINE NEGATIVE (NEGATIVE); COLOR,URINE YELLOW; GLUCOSE, URINE 50 mg/dL (NEGATIVE); KETONES,URINE TRACE mg/dL (NEGATIVE); PROTEIN,URINE >=500 mg/dL (NEGATIVE); URINE SPECIFIC GRAVITY 1.012; UROBILINOGEN,URINE NEGATIVE mg/dL (<2.0)
[2019-02-26 15:42] VITALS: BP 141/106
== END 2019-02-26 15:44 | disposition short-term general hospital (02) ==
LOC: ER 08:18
DX: S42.201A Unspecified fracture of upper end of right humerus, initial encounter for closed fracture (principal); S00.91XA Abrasion of unspecified part of head, initial encounter; W19.XXXA Unspecified fall, initial encounter; E87.5 Hyperkalemia; I11.0 Hypertensive heart disease with heart failure; I50.9 Heart failure, unspecified; N17.9 Acute kidney failure, unspecified; R41.0 Disorientation, unspecified; R06.02 Shortness of breath; R06.2 Wheezing; R14.0 Abdominal distension (gaseous); L53.9 Erythematous condition, unspecified; E11.9 Type 2 diabetes mellitus without complications; R42 Dizziness and giddiness; D72.829 Elevated white blood cell count, unspecified; Z88.0 Allergy status to penicillin
CPT/HCPCS: 93005; 96376; 99291; 51702; 96375; 96365; 36415; 85025; 80053; 81001; 84484; 83880; 71046; 73080; 73030; 70450; 93010; A9270 ×2; J1650; J1940; J2270; J0696

== ENCOUNTER → 2019-08-02 | Outpatient (CLI) | payer MEDICARE ==
--- NOTE | 2019-08-02 14:55 | RADIOLOGY REPORT (SQ) ---
EXAM DESCRIPTION: CT RT UPPER EXTREMITY WITHOUT IMAGES COMPLETED DATE/TIME: 08/02/2019 2:21 pm REASON FOR STUDY: M25.511 PAIN IN RIGHT SHOULDER COMPARISON: None. TECHNIQUE: Axial imaging performed through the Right shoulder with reformatted coronal and sagittal imaging windowed for bone and soft tissues. Images saved to PAC S. 3D IMAGING: Were 3D images as MIP, SSD, or volume rendering performed at the work station? Yes LIMITATIONS: Metal artifact. FINDINGS: There is extensive metal artifact associated with plate and screw fixation of surgical nec k fracture. Alignment is anatomic. No evidence of hardware loosening or breakage. Fracture line is still visible. IMPRESSION: Status post ORIF surgical neck fracture. No evidence of postoperative complication. Reading location - IP/workstation name: [email or web address]
== END ==
LOC: RAD 13:40
PROVIDERS: ATTEND Orthopaedic Surgery
DX: M25.511 Pain in right shoulder (principal)

== ENCOUNTER 2020-03-26 12:00 | Emergency (ER) | payer MEDICARE ==
[2020-03-26] MEDS ORDERED: HYDROMORPHONE HCL INJ/PF 2 MG/ML AMPULE IV ONE ×4 (14:30→20:21)
[2020-03-26] MEDS ORDERED: ONDANSETRON HCL INJ/PF 4 MG/2 ML SDV IV ONE ×2 (14:30→17:00)
--- NOTE | 2020-03-26 19:32 | ER Document Report ---
ED Extremity Problem, Upper - General Chief Complaint: Arm Pain Stated Complaint: ARM PAIN Time Seen by Provider: 03/26/20 14:04 Primary Care Provider: PAOLO CAMARENA DO [Primary Care Provider] - Follow up as needed Mode of Arrival: Stretcher Information source: Patient, Relative, PENDING SALE TO [facility] Records Notes: Patient is a 64-year-old male who comes in via EMS with a complaint of right upper extremity pain. Patient has a very significant past medical history and that he had a status post ORIF of the surgical neck done in February of last year at another facility. Patient states he had some problems with that and in July he consulted with Dr. Camarena and CT was done here at the hospital that did not show any acute findings. Patient states that he once again fell approx imately 10 days ago onto the right arm but he did not come to the hospital because he was evaluated by EMS and he did not think he broke anything. Patient states he fell again today while trying to ambulate to the bathroom and landed on the right shoulder again. This time patient states that the arm is swollen and turning black and blue and he is wanting to be evaluated for this. Patient is very histrionic and that he is not usually very ambulatory secondary to a large intra-abdominal and pelvic mass. This is something that is being addressed by his other physicians and he is to go to [place] sometime next week for evaluation by urologist to fix the problem. Patient also informs me that secondary to this large pelvic mass he also has bilateral lower extremity lymphedema that does weep. Again this is also being monitored by his physicians. He is primarily here today for evaluation of his right upper extremity which she states is very painful and he is not able to move it. He also indicates that he has had a ORIF of the left shoulder as well and does not have total range of motion with it since surgery a few years ago. The patient was trying to ambulate to the bathroom today with a huge pelvic and groin mass and lost his balance and fell. He did not pass out he did not hit his head no loss of consciousness. Also to note patient is on Eliquis. Patient also states that he is in pain management currently and on the first fall 10 days ago did not want to come to emergency room because he had his own pain medications. Patient also has a significant history of hypertension and insulin-dependent diabetes. TRAVEL OUTSIDE OF THE [place] IN LAST 30 DAYS: No - HPI Patient complains to provider of: Injury, Pain, Swelling, Right, Forearm, Hand, Wrist, Shoulder Onset: This morning Recent injury: Yes Quality of pain: Sharp, Throbbing Severity of pain: Moderate, Still present Pain Level: 5 Associated symptoms: denies: Hurts to breathe, Neck pain, Numbness, Short of breath Exacerbated by: Movement Relieved by: Nothing Similar symptoms previously: Yes Recently seen / treated by doctor: No - Related Data Allergies/Adverse Reactions: Penicillins Allergy (Verified 03/26/20 12:28) Home Medications: metformin, oxycodone, lasix, xarelto, patient unsure of names; blood pressure Past Medical History - General Information source: Patient, Relative - Social History Smoking Status: Former Smoker Cigarette use (# per day): No Chew tobacco use (# tins/day): No Smoking Education Provided: No Frequency of alcohol use: None Drug Abuse: None Lives with: Spouse/Significant other Family History: Reviewed & Not Pertinent - Past Medical History Cardiac Medical History: Reports: Hx Atrial Fibrillation, Hx Congestive Heart Failure, Hx Hypercholesterolemia, Hx Hypertension Pulmonary Medical History: Reports: Hx COPD Denies: Hx Tuberculosis Neurological Medical History: Denies: Hx Seizures Endocrine Medical History: Reports: Hx Diabetes Mellitus Type 2. Denies: Hx Graves' Disease, Hx Hyperthyroidism, Hx Hypothyroidism Renal/ Medical History: Denies: Hx Peritoneal Dialysis GI Medical History: Reports: Hx Gastroesophageal Reflux Disease. Denies: Hx Crohn's Disease, Hx Hiatal Hernia, Hx Irritable Bowel, Hx Liver Failure, Hx Pancreatitis, Hx Ulcer Musculoskeletal Medical History: Denies Hx Arthritis, Denies Hx Fibromyalgia, Denies Hx Muscular Dystrophy, Denies Hx Systemic Lupus Erythematosus Psychiatric Medical History: Reports: Hx Depression Traumatic Medical History: Denies: Hx Fractures Past Surgical History: Reports: Hx Orthopedic Surgery - left shoulder, s/p accident. Denies: Hx Colostomy, Hx Pacemaker - Immunizations Hx Diphtheria, Pertussis, Tetanus Vaccination: Yes Review of Systems - Review of Systems Constitutional: No symptoms reported EENT: No symptoms reported Cardiovascular: No symptoms reported Respiratory: No symptoms reported Gastrointestinal: No symptoms reported Genitourinary: No symptoms reported Male Genitourinary: No symptoms reported Musculoskeletal: See HPI, Joint pain, Joint swelling, Muscle pain Skin: No symptoms reported Hematologic/Lymphatic: No symptoms reported Neurological/Psychological: No symptoms reported -: Yes All other systems reviewed and negative Physical Exam - Vital signs Vitals: Temp Pulse Resp BP Pulse Ox 97.7 F 77 22 H 156/77 H 94 03/26/20 12:10 03/26/20 12:10 03/26/20 12:10 03/26/20 12:10 03/26/20 12:10 Interpretation: Hypertensive - Notes Notes: PHYSICAL EXAMINATION: GENERAL: Patient is a very morbidly obese 64-year-old male no apparent distress on examination however patient does appear uncomfortable. HEAD: Atraumatic, normocephalic. Complete examination of patient's head since he did have a fall and is on Eliquis review of his head shows no sign of hematomas ecchymosis abrasions no sign of trauma. EYES: Pupils equal round and reactive to light, extraocular movements intact, sclera anicteric, conjunctiva are normal. ENT: Nares patent, oropharynx clear without exudates. Moist mucous membranes. NECK: Normal range of motion, supple without lymphadenopathy LUNGS: Breath sounds clear to auscultation bilaterally and equal. No wheezes rales or rhonchi. HEART: Regular rate and rhythm without murmurs ABDOMEN: Examination of patient's abdomen does show bowel sounds can be auscultated however patient has a huge scaly gigantic mass that extends from mid abdomen down into the scrotal and upper groin regions. Patient's scrotum is unidentifiable as is his penis. There is a trickle of urine that can be seen coming out of an area. The mass itself is very taut and stated scaly. Musculoskeletal: Examination patient's area concern is his right arm and shoulder area. Patient has according to the a deformity at the shoulder that does not look any different than previous. This is just superior to the clavicular line. And near the AC joint space. Patient has some mild swelling on the upper humeral area and most of his pain radiates down to the from the elbow to the hand. He has good it infrastructure architect strength in his right hand he has full flexion-extension of the fingers. Patient also has good cap refill in the nailbeds of all fingers on the right hand. Good ulnar and radial pulses. He has moderate tenderness across the forearm to palpation as he does at the elbow. Patient has increased pain with any type movement at the joint space of the elbow. And any touching of the upper arm itself. Unable to do any passive range of motion at this time of the right shoulder or upper arm. Patient also displays a good brachial pulse. There is no sign of compartment syndrome. NEUROLOGICAL: Cranial nerves grossly intact. Normal speech, unable to ascertain gait on patient secondary to pain discomfort in size. As well as because of the large mass in his abdomen and pelvic area. PSYCH: Normal mood, normal affect. SKIN: Warm, Dry, normal turgor, no rashes or lesions noted. Course - Re-evaluation Re-evalutation: 03/26/20 19:44 Since patient had made it into our CT machine in the previous visits in July I attempted to have them taken over after sedation to attempt a CT of the upper extremity and shoulder. They gave it a try but patient would not fit into the CT machine. Patient came back to the room was refusing x-rays secondary to pain I went in and talk to the patient and convinced him to let us giving more pain medication and to do x-rays from the shoulder down. I have ordered x-rays of the shoulder the humerus the elbow and the forearm the wrist and the hand given the patient is not moving at all. They again approached me with that and stated that Teddy to get us all the views and if we give you more pain medication they will attempt to get the best they can. In the meantime at the advice of Dr. Edmonds I contacted the surgeon has seen him previously Dr. Camarena and informed her was going on and because we do not have x-rays he stated that even if it is an upper extremity fracture or humeral fracture he can probably be followed up in the office however he he was gracious enough to come down to the room and a lso look at patient's arm and agrees that whenever the fracture may be we can contact him but any single fracture like a humerus or shoulder can be splinted and he can follow-up in the office and this is what he informed to the patient as well. Patient seemed understand this and agreed to that. So we are currently waiting for x-rays to be performed. 03/26/20 20:16 Dr. Camarena came down while patient was being x-rayed and reviewed them on the x-ray machine and patient was only found to have a distal humeral fracture. He stated this is something patient can follow-up outpatient with them patient is in agreement with this. We are going to place him in a posterior OCL in the right arm with a sling and he will be sent home to continue with his current pain medications. We will give him 1 more milligram of Dilaudid before we start the process and he goes home. - Vital Signs Vital signs: Temp Pulse Resp BP Pulse Ox 97.3 F 92 20 148/86 H 98 03/26/20 23:09 03/26/20 23:09 03/26/20 23:09 03/26/20 23:09 03/26/20 23:09 - Laboratory Results Critical Laboratory Results Reviewed: No Critical Results - Radiology Results Critical Radiology Results Reviewed: No Critical Results Procedures - Immobilization Right Posterior Arm Time completed: 20:30 Pre-Proc Neuro Vasc Exam: Normal Immobilizer type: Long arm posterior Performed by: Provider, PCT Post-Proc Neuro Vasc Exam: Normal Alignment checked and good: Yes Discharge - Discharge Clinical Impression: Closed fracture of distal end of humerus Qualifiers: Encounter type: initial encounter Fracture morphology: unspecified fracture morphology Laterality: right Qualified Code(s): S42.401A - Unspecified fracture of lower end of right humerus, initial encounter for closed fracture Condition: Stable Disposition: HOME, SELF-CARE Instructions: Supracondylar Fracture of the Elbow ([facility]) Additional Instructions: You actually have a fracture of your distal humerus which is the upper large bone where connects at the elbow. It is mildly displaced and is already been seen by Dr. Camarena and he is recommended we put you in a posterior OCL splint and you can follow-up with him sometime this week. Contact his office first thing in the morning for an appointment. Continue with your current pain medications. You can also ice down through this splint by wrapping the arm in a little garbage bag and putting ice above and below at 11 set for 30 minutes. Should you have any concerns or problems or if you have any loss of sensation or feeling in the fingers return to ER for reevaluation. Forms: Elevated Blood Pressure Referrals: PAOLO CAMARENA DO [Primary Care Provider] - Follow up as needed
--- NOTE | 2020-03-26 20:07 | PDOC CONSULTATION ---
Consultation Consult Date: 03/26/20 Provider Consulted: PAOLO CAMARENA History of Present Illness Admission Date/PCP: PAOLO CAMARENA DO Patient complains of: Right arm pain History of Present Illness: TANIA KENNEDY is a 64 year old male who sustained a fall approximately 8 days ago on his right upper extremity. Patient has history of prior ORIF of the proximal humerus. Patient had notable pain at that time but then sustained a secondary fall today which worsened his discomfort. Patient states pain is worse with any attempted motion. Required Dilaudid in the emergency room for pain control. Denies numbness or tingling. Pain 4/5. Past Medical History Cardiac Medical History: Reports: Atrial Fibrillation, Congestive Heart Failure, Hyperlipidema, Hypertension Pulmonary Medical History: Reports: Chronic Obstructive Pulmonary Disease (COPD) Denies: Tuberculosis Neurological Medical History: Denies: Seizures Endocrine Medical History: Reports: Diabetes Mellitus Type 2 Denies: Hyperthyroidism, Hypothyroidism GI Medical History: Reports: Gastroesophageal Reflux Disease Denies: Crohn's Disease, Hiatal Hernia Musculoskeltal Medical History: Denies: Arthritis, Fibromyalgia Psychiatric Medical History: Reports: Depression Past Surgical History Past Surgical History: Reports: Orthopedic Surgery - left shoulder, s/p accident Denies: Colostomy, Pacemaker Social History Lives with: Spouse/Significant other Smoking Status: Former Smoker Hx Recreational Drug Use: No Hx Prescription Drug Abuse: No Family History Family History: Reviewed & Not Pertinent Parental Family History Reviewed: No Children Family History Reviewed: No Sibling(s) Family History Reviewed.: No Medication/Allergy Home Medications: Allopurinol [Zyloprim 300 Mg Tablet] 300 mg PO DAILY 08/13/11 Aspirin [Aspirin 81 mg Chewable Tablet] 81 mg PO DAILY 08/13/11 Duloxetine HCl [Cymbalta] 60 mg PO DAILY 08/13/11 Insulin Lispro Protamin/Lispro [Humalog Mix 50-50 Kwikpen] 100 unit SQ 08/13/11 Lisinopril [Prinivil 2.5 mg Tablet] 2.5 mg PO DAILY 08/13/11 Simvastatin [Zocor 40 mg Tablet] 40 mg PO QHS 08/13/11 Erythromycin Base [Diony-Tab] 500 mg PO QID 08/17/11 Hum Insulin NPH/Reg Insulin Hm [Novolin Inj 70-30 (100 Unit/1 Ml) 3 Ml Vial] 50 unit SUBCUT QAM 08/17/11 Hum Insulin NPH/Reg Insulin Hm [Novolin Inj 70-30 (100 Unit/1 Ml) 3 Ml Vial] 55 unit SUBCUT QHS 08/17/11 Clindamycin HCl [Cleocin 300 mg Capsule] 300 mg PO QID #28 capsule 10/07/15 Fluconazole [Diflucan 100 Mg Tablet] 100 mg PO DAILY #7 tablet 10/07/15 Hydrocodone/Acetaminophen [[place] 5-325 Tablet] 1 each PO Q6 PRN #12 tablet 10/07/15 Allergies/Adverse Reactions: Penicillins Allergy (Verified 03/26/20 12:28) Review of Systems Cardiovascular: PRESENT: dyspnea on exertion Respiratory: PRESENT: dyspnea Gastrointestinal: PRESENT: other - Abdominal mass Genitourinary: PRESENT: difficulty urinating Musculoskeletal: PRESENT: as per HPI Integumentary: PRESENT: pruritus, rash Neurological: PRESENT: weakness Physical Exam Vital Signs: Temp Pulse Resp BP Pulse Ox 97.9 F 74 24 H 159/81 H 99 03/26/20 19:17 03/26/20 19:17 03/26/20 19:17 03/26/20 19:17 03/26/20 19:17 Intake & Output 03/25/20 03/26/20 03/27/20 06:59 06:59 06:59 Weight 198.5 kg General appearance: PRESENT: no acute distress, morbidly obese, well-developed, well-nourished Head exam: PRESENT: atraumatic, normocephalic Eye exam: PRESENT: conjunctiva pink, EOMI, PERRLA. ABSENT: scleral icterus Ear exam: PRESENT: normal external ear exam Mouth exam: PRESENT: moist, tongue midline Teeth exam: PRESENT: dental caries Neck exam: ABSENT: carotid bruit, JVD, lymphadenopathy, thyromegaly Respiratory exam: PRESENT: unlabored Cardiovascular exam: PRESENT: RRR. ABSENT: diastolic murmur, rubs, systolic murmur Pulses: PRESENT: normal radial pulses, other - Bilateral dorsalis pedis pulses not palpable Vascular exam: PRESENT: normal capillary refill GI/Abdominal exam: PRESENT: other - Significant abdominal mass with large pannus noted. ABSENT: distended, guarding, mass, organolmegaly, rebound, tenderness Rectal exam: PRESENT: deferred Additional comments: Right upper extremity: Swelling/ecchymosis throughout the posterior forearm and elbow with swelling and effusion. Limited elbow exam secondary to patient's pain compartments soft and compressible no sign of compartment syndrome. Pain with any attempted elbow range of motion. No sensory deficits. Swelling throughout the hand. Full active flexion of the DIP/PIP/MP joints. Full active extension of the MP/PIP/DIP joints. EPL/FPL intact. Radial/ulnar pulse 2+. Cap refill less than 2 seconds. Neurological exam: PRESENT: alert, awake, oriented to person, oriented to place, oriented to time, oriented to situation, CN II-XII grossly intact. ABSENT: motor sensory deficit Psychiatric exam: PRESENT: appropriate affect, normal mood. ABSENT: homicidal ideation, suicidal ideation Skin exam: PRESENT: dry, intact, warm. ABSENT: cyanosis, rash Results Status: Image reviewed by me - Radiographs have been reviewed demonstrating distal humerus fracture which appears extra-articular prior hardware of the pr oximal humerus noted as well with hardware loosening. Assessment & Plan - Diagnosis (1) Closed fracture of right distal humerus Qualifiers: Encounter type: initial encounter Fracture alignment: displaced Is this a current diagnosis for this admission?: Yes Plan: Patient sustained displaced fracture of the distal humerus radiographs are consistent with likely extra-articular fracture unfortunately patient is unable to obtain CT scan given his body habitus. Currently I have recommended ice elevation and patient be placed in a posterior splint. Will follow-up as an outpatient. Of course will maintain nonweightbearing until follow-up.
--- NOTE | 2020-03-26 20:47 | RADIOLOGY REPORT (SQ) ---
EXAM DESCRIPTION: XR SHOULDER 1 VIEW COMPLETED DATE/TME: 03/26/2020 20:19 CLINICAL HISTORY: 64 years, Male, pain after fall COMPARISON: None. NUMBER OF VIEWS: TECHNIQUE: LIMITATIONS: None. FINDINGS: No evidence of acute fracture or dislocation. There is an old fracture of the humeral head and neck, with metallic fixation in place. Mineralization of bone appears normal. IMPRESSION: No acute fracture or dislocation. copyright 2010 [employer]- All Rights Reserved
--- NOTE | 2020-03-26 20:49 | RADIOLOGY REPORT (SQ) ---
EXAM DESCRIPTION: XR HUMERUS 2 views COMPLETED DATE/TME: 03/26/2020 20:19 CLINICAL HISTORY: 64 years, Male, pain after fall COMPARISON: None. NUMBER OF VIEWS: TECHNIQUE: LIMITATIONS: None. FINDINGS: There is acute fracture involving the distal humerus, with posteromedial displacement and medial angulation. There are old fractures of the humeral head and neck, with metallic fixation in place. IMPRESSION: Fracture of the distal humerus. copyright 2010 [employer] All Rights Reserved
--- NOTE | 2020-03-26 20:52 | RADIOLOGY REPORT (SQ) ---
EXAM DESCRIPTION: XR HAND 2 VIEWS COMPLETED DATE/TME: 03/26/2020 20:19 CLINICAL HISTORY: 64 years, Male, fall COMPARISON: None. NUMBER OF VIEWS: TECHNIQUE: LIMITATIONS: None. FINDINGS: No evidence of acute fracture or dislocation. There is an old fracture of the base of the first metacarpal, with [address] There are degenerative changes involving the first carpometacarpal joint. IMPRESSION: No evidence of acute fracture or dislocation. Other findings as described. copyright 2010 [employer]- All Rights Reserved
--- NOTE | 2020-03-26 20:54 | RADIOLOGY REPORT (SQ) ---
EXAM DESCRIPTION: X-ray right forearm 2 views COMPLETED DATE/TME: 03/26/2020 20:19 CLINICAL HISTORY: 64 years, Male, fall COMPARISON: None. NUMBER OF VIEWS: TECHNIQUE: LIMITATIONS: None. FINDINGS: There is acute fracture of the distal humerus, that I have already described in my humerus x-ray report. No fracture or dislocation involving the radius and ulna. There is an old fracture of the base of the first metacarpal, with [address] There are degenerative changes involving the first carpometacarpal joint. IMPRESSION: Acute fracture of the distal humerus. No fracture or dislocation involving the radius and ulna. copyright 2010 [employer]- All Rights Reserved
[2020-03-26 23:09] VITALS: BP 148/86
== END 2020-03-26 23:32 | disposition home or self-care (01) ==
LOC: ER 12:00
DX: S42.401A Unspecified fracture of lower end of right humerus, initial encounter for closed fracture (principal); W18.30XA Fall on same level, unspecified, initial encounter; I48.91 Unspecified atrial fibrillation; I50.9 Heart failure, unspecified; I11.0 Hypertensive heart disease with heart failure; E11.9 Type 2 diabetes mellitus without complications; E78.00 Pure hypercholesterolemia, unspecified; Z79.01 Long term (current) use of anticoagulants; Z88.0 Allergy status to penicillin
CPT/HCPCS: 96376; 99284; 96374; 96375; 73090; 73120; 73060; 73020; 29105; J1170; J2405